=== PATIENT | male | born 1965 | race Caucasian/White ===

== ENCOUNTER 2017-07-20 14:29 | Day surgery (SDC) | payer OTHER ==
[~2017-07-20] VITALS: Ht 172.7 cm; Wt 88.4 kg
--- NOTE | ~2017-07-20 | DS ---
PATIENT'S NAME: JONO BLANCO [facility] AGE: 52 Y [address] ROOM: [id number] [place], [place] [address] [place] [facility] [place]: 07/20/2017 Discharge Summary DISCHARGE DATE: 07/21/2017 FAMILY PHYSICIAN: , AUGUSTUS ATTENDING PHYSICIAN: Lance Mata FINAL DIAGNOSES: 1. Left hand power-saw injury. 2. Essential hypertension. 3. History of asthma. CONSULTANTS ON THE CASE: Dr. Mata. PROCEDURES: Repair of extensor tendons and debridement of the left 1st metatarsal metacarpal by Dr. Mata. HOSPITAL COURSE: Briefly, the patient was admitted through the emergency room with traumatic injury. He was taken immediately to the operating room by Dr. Mata for the above-mentioned procedure. The patient tolerated the procedure well. He recovered without complications. He did receive perioperative antibiotics with ceftriaxone. The patient did receive oral Cipro postoperatively. The patient was found to have elevated blood pressures and Norvasc was started; however, the patient refused to take it. Following day, the patient's pain was well-controlled, he had complete sensation, and it was felt that the patient could safely be discharged and restrictions as per Dr. Mata's orders and followup following day at his clinic. The patient was counseled for greater than 25 minutes on implications of uncontrolled blood pressure by Dr. Houston and myself. However, the patient continued to refuse medication. The patient was discharged in stable condition. DISCHARGE INSTRUCTIONS: The patient is discharged home, activities, no use of the left thumb and no work with the left thumb. Diet is to resume previous. Bandages are to be kept clean and dry. Follow up with Dr. Mata on , 07/22/2017, at 7:30 a.m. DISCHARGE MEDICATIONS: 1. Ciprofloxacin 500 mg twice daily for 2 days. 2. Oxycodone 5/325 1 to 2 tabs every 4 hours as needed for pain. 3. Norvasc 5 mg orally everyday. I do appreciate participating in this patient's care and thank you very much for the ability to serve him while hospitalized at [facility]. PATIENT'S NAME: JONO BLANCO [facility] AGE: 52 Y [address] ROOM: [id number] [place] [id number] [place] [facility] [place]: 07/20/2017 Discharge Summary DISCHARGE DATE: 07/21/2017 FAMILY PHYSICIAN: PHYSICIAN, NO ATTENDING PHYSICIAN: Lance Mata PA FOR MARILIA HOUSTON MD JAVED/modl /[id number] d: 07/22/17 0553 t: 07/26/17 1829, DISCHARGE SUMMARY
--- NOTE | ~2017-07-20 | OR ---
PATIENT'S NAME: JAYESH LOPEZ [facility] AGE: 52 Y [address] ROOM: [place] [address] LOCATION: [facility] [place] ADMIT DATE: 07/20/2017 OR/Procedure Report DISCHARGE DATE: 07/21/2017 FAMILY PHYSICIAN: PHYSICIAN, NO ATTENDING PHYSICIAN: Lance Mata SURGEON: Lance Mata DO GENERAL UTILITY WORKER: Staff. DATE OF PROCEDURE: 07/20/2017 PREOPERATIVE DIAGNOSIS: Left thumb power saw laceration with extensor tendon and dorsal sensory nerve lacerations. POSTOPERATIVE DIAGNOSIS: Left thumb power saw laceration with extensor tendon and dorsal sensory nerve lacerations with a unicortical defect in the first dorsal metacarpal with no obvious major nerve lacerations. PROCEDURES: 1. Left thumb debridement to bone. 2. Left thumb repair, extensor pollicis longus tendon. 3. Left thumb repair, extensor pollicis brevis tendon. ANESTHESIA: IV regional with sedation. ESTIMATED BLOOD LOSS: Less than 10 mL. TOURNIQUET TIME: Less than 90 minutes at 250 mmHg. COMPLICATION: None. DISPOSITION: Stable to recovery room. JUSTIFICATION FOR PROCEDURE: Jayesh Lopez is a 52-year-old man with a history of an accidental self-inflicted laceration to the dorsal aspect of his left thumb just proximal to the MP joint. He had extensor tendon deficit to the thumb and diminished sensation dorsally. He was counseled as to treatment options, risks versus benefits, and necessary afterward care. He gave informed consent to proceed with a left thumb debridement, repair of tendon, possible repair of nerve, artery, and any indicated procedures. PROCEDURE IN DETAIL: The patient was properly identified, both verbally and by name tag. He was taken to the operating suite, placed on the operating table in the supine position. The anesthesiologist administered an IV regional anesthetic in the left upper extremity and IV sedation. Once adequate anesthesia was obtained, the left upper extremity was prepped PATIENT'S NAME: JAYESH LOPEZ [facility] AGE: 52 Y [address] ROOM: [place] [address] LOCATION: [facility] [place] ADMIT DATE: 07/20/2017 OR/Procedure Report DISCHARGE DATE: 07/21/2017 FAMILY PHYSICIAN: PHYSICIAN, NO ATTENDING PHYSICIAN: Lance Mata and draped in the usual sterile fashion. The extremity was exsanguinated with an Esmarch bandage and a tourniquet inflated to level of the arm to 250 mmHg. A #15 blade knife was used to make an oblique incision extending from the proximal and distal aspects of his roughly oblique laceration to gain access to more normal tissues and to gain access to the severed tendon ends. It was readily apparent that the power tool had cut completely through both the extensor pollicis longus and extensor pollicis brevis just proximal to the extensor cosme at the dorsal MCP joint and it scored the bone dorsally at the neck level on the first metacarpal. The wound was copiously irrigated with saline. It was debrided sharply from superficial to deep under loupe magnification, taking care to remove only devitalized and contaminated tissues. The dorsal sensory nerves to both sides of the thumb were identified and neither of these showed any significant injury. Some very tiny branches off the more ulnar of the 2 dorsal sensory nerve branches may have that had some injuries through the zone of injury, but the tissue here was heavily contaminated and it was felt that these tiny branches were most likely not amenable to repair. The main branches were intact. The wound was copiously irrigated with saline. The wound was meticulously debrided from superficial to deep and from proximal to distal. All contaminated and devitalized tissues were removed while protecting the remaining neurovascular and tendinous structures. The extensor tendon had retracted to just distal to the level of the wrist extensor crease dorsally and so the incision had to be extended proximally about that far, cutting only the skin with a 15 blade knife and then carrying out blunt dissection under loupe magnification through the superficial to the deep fascia. Once again, dorsal sensory branches of the radial nerve were identified and carefully protected throughout the procedure. The extensor pollicis brevis tendon was mobilized back to its anatomic insertion level and was freshened up sharply. It was then repaired with 2-0 FiberWire suture in an interrupted modified cruciate stitch pattern using a multi-stitch multi-knot technique. The extensor pollicis longus tendon was also mobilized and freed up from proximal to distal, passed through its normal fibroosseous tunnel and passed out till the level of the extensor cosme where it had been transected. It too was freshened up sharply and then repaired with 2-0 FiberWire suture in an interrupted modified cruciate stitch fashion using a multistrand multi-knot technique. The wound was copiously irrigated with saline. The thumb was then placed through a range of motion. Normal passive range of motion was achieved and good tenodesis function was achieved with passive motion through the wrist. The integrity of the tendon repairs was rechecked and showed no evidence of loss of knot integrity or approximation at the tendon surfaces. The wound was copiously irrigated with saline. It was carefully explored and there were no further areas of contamination or foreign body retention. The unicortical defect was debrided prior to the tendon repairs and it too showed no evidence of retained foreign body or contamination. The surgical incisions were closed with 5-0 nylon suture in an interrupted mattress stitch fashion to the skin. The traumatic PATIENT'S NAME: JAYESH LOPEZ [facility] AGE: 52 Y [address] ROOM: [place] [address] LOCATION: [facility] [place] ADMIT DATE: 07/20/2017 OR/Procedure Report DISCHARGE DATE: 07/21/2017 FAMILY PHYSICIAN: PHYSICIAN, NO ATTENDING PHYSICIAN: Lance Mata wound was loosely approximated with 5-0 nylon suture in an interrupted mattress stitch fashion taking care to leave ample open area to allow for drainage. The wound was copiously irrigated with saline prior to final skin closure and then covered with a sterile bulky bundle dressing. A splint was applied to protect the extensor repairs. The patient was aroused from IV sedation, taken to the recovery room in good condition. Immediate postoperative examination in the recovery room showed good capillary refill distally in all 5 digits. Light touch sensation and motor function distally were grossly intact in the radial, ulnar, and median nerve distributions. DO YAN GILES/olivial /[id number] d: 07/29/17 0230 t: 08/03/17 1805, OPERATIVE SUMMARY
--- NOTE | ~2017-07-20 | ER ---
PATIENT'S NAME: JONO LOPEZ [facility] AGE: 52 Y [address] ROOM: [place] [address] LOCATION: [facility] [place] ADMIT DATE: 07/20/2017 ER/Outpatient Report DISCHARGE DATE: 07/21/2017 FAMILY PHYSICIAN: PHYSICIAN, NO ATTENDING PHYSICIAN: Lance Mtaa CHIEF COMPLAINT: Left thumb injury. HISTORY OF PRESENT ILLNESS: Mr. Lopez was using a cut off wheel on [employer] just prior to arrival. When it slipped and struck his back of his left thumb around 2 p.m. He placed a bandage to the area after removing his cotton glove and decided to come in. His tetanus was updated two days ago. He denies any significant medical issues. No known allergies. Does not take any medications. Drinks socially. He is otherwise has no complaints other than he cannot lift his left thumb. He is without other complaints at this time. PAST MEDICAL HISTORY: Documented on the record and reviewed by me. SOCIAL HISTORY: Documented on the record and reviewed by me. MEDICATIONS: Documented on the record and reviewed by me. ALLERGIES: DOCUMENTED ON THE RECORD AND REVIEWED BY ME. REVIEW OF SYSTEMS: All systems reviewed and negative except as noted in the HPI. PHYSICAL EXAMINATION: VITAL SIGNS: Blood pressure 161/97, pulse is 75, respiratory rate is 20, temperature 97.4, SpO2 is 95% on room air. Pain is rated 2/10. GENERAL: Age-appropriate male, sitting upright on exam table. No apparent pain or distress. NEUROLOGIC: Awake and alert. No obvious abnormalities. No sensory deficits in the left thumb. The patient is unable to extend. Please see below for further details of musculoskeletal exam. HEENT: Normocephalic, atraumatic. Otherwise, unremarkable. CHEST/HEART: Regular rate and rhythm. LUNGS: Grossly clear. Even and unlabored respirations otherwise. ABDOMEN: Benign. PATIENT'S NAME: JONO LOPEZ [facility] AGE: 52 Y [address] ROOM: [place] [address] LOCATION: [facility] [place] ADMIT DATE: 07/20/2017 ER/Outpatient Report DISCHARGE DATE: 07/21/2017 FAMILY PHYSICIAN: PHYSICIAN, NO ATTENDING PHYSICIAN: Lance Mata BACK: Normal to inspection. EXTREMITIES: Unremarkable except for the left thumb. Just proximal to the base of the left thumb, there is a 2.5 cm of full-thickness laceration with visible tendon material in it. No obvious other abnormalities. The patient is unable to activate any extension of the thumb or the interphalangeal joint. He endorses normal sensation to light touch throughout the thumb except slightly diminished on the proximal phalanx, just distal to the injury. He denies any other symptoms at this time. SKIN: Otherwise clean, dry, and intact. IMPRESSION: Left thumb laceration with extensor tendon involvement and possible open joint. EMERGENCY DEPARTMENT COURSE: The patient was seen and evaluated at bedside. IV was established. He was given 2 g of Ancef. Tetanus is up to date. He will receive evaluation from Dr. Mata, hand surgeon, for this wound. I did discuss the case with Dr. Mata, and as I cannot completely eliminate any possibility of open joint and I feel a possible bony defect that would be consistent with mechanism of injury, despite not being able to see any abnormalities on x-ray, the patient will be taken to the operating room by Dr. Mata for surgical exploration and possible repair. MD KAYLA JOSEPH/david /[id number] d: 07/21/17 1443 t: 07/26/17 0640, OUTPATIENT REPORT
--- NOTE | ~2017-07-20 | CON ---
PATIENT'S NAME: JAYESH LOPEZ [facility] AGE: 52 Y [address] ROOM: [place] [address] [place] [facility] [place] ADMIT DATE: 07/20/2017 Consultation DISCHARGE DATE: 07/21/2017 FAMILY PHYSICIAN: PHYSICIAN, AUGUSTUS ATTENDING PHYSICIAN: Lance Mata DATE OF CONSULTATION: 07/20/2017 REFERRING PHYSICIAN: Michael Mcbride MD ADMISSION INFORMATION: Jayesh Lopez is a 52-year-old man who is a right-handed individual, status post an accidental self-inflicted injury to his left thumb with a power cutting tool. The patient had pain and inability to extend the left thumb after the injury. PAST MEDICAL HISTORY: Negative. PAST SURGICAL HISTORY: Significant for hernia operation. SOCIAL HISTORY: Significant for occasional EtOH use. Negative for tobacco. CURRENT MEDICATIONS: None. FAMILY HISTORY: Noncontributory. REVIEW OF SYSTEMS: A 10-system review showed no other complaints on his review of systems. PHYSICAL EXAMINATION: EXTREMITIES: The patient's left thumb showed an oblique laceration over the dorsal aspect in the vicinity of the MP joint. There was visible extensor tendon laceration and a possible unicortical defect in the bone at the level of the laceration. The patient had diminished sensation distal to the thumb along the dorsal aspect of the thumb. His flexion was intact. His other digits showed no injury. X-rays of the thumb in the AP, lateral, and oblique projection revealed no obvious fractures. ASSESSMENT: Laceration to the left hand with extensor tendon deficit at the left thumb. PATIENT'S NAME: JAYESH LOPEZ [facility] AGE: 52 Y [address] ROOM: [place] [address] [place] [facility] [place] ADMIT DATE: 07/20/2017 Consultation DISCHARGE DATE: 07/21/2017 FAMILY PHYSICIAN: PHYSICIAN, NO ATTENDING PHYSICIAN: Lance Mata PLAN: Treatment options, risks versus benefits, and necessary afterward care were discussed with the patient. Perioperative antibiotics and wound care were administered in the ER. His tetanus status was addressed and he was counseled as to treatment options. We gave him informed consent to proceed with a left thumb extensor tendon repair, debridement, and any indicated procedures. He was scheduled for the surgery later the same night. DO YAN GILES/david /[id number] d: 07/29/17 0117 t: 08/03/17 1808, CONSULTATION REPORT
--- NOTE | ~2017-07-20 | HP ---
PATIENT'S NAME: JONO BLANCO [facility] AGE: 52 Y [address] ROOM: [place] [address] LOCATION: [facility] ADMIT DATE: 07/20/2017 History & Physical DISCHARGE DATE: FAMILY PHYSICIAN: PHYSICIAN, NO ATTENDING PHYSICIAN: Gil Baron DATE OF SERVICE: CHIEF COMPLAINT: Left thumb traumatic laceration. HISTORY OF PRESENT ILLNESS: The patient is a pleasant 52-year-old male, who was working today at [employer]. 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 He was wearing cotton gloves at that time. He was immediately sent to the emergency room for further evaluation. Upon evaluation here in the emergency room, there was some concern for tendon disruption and/or further occult injury. X-ray was performed and was negative for acute fracture. We were asked to admit the patient for possible orthopedic surgical repair of the above-mentioned thumb. Dr. Mata has been consulted and evaluated the patient. He felt that the patient would require I and D and further exploration. Currently, the patient denies any pain or paresthesias. He denies any chest pain, pressure, palpitations, orthopnea, orthostasis, or PND. He has not had any cough, colds, or recent illnesses. The patient had surgical hernia repair as well as cyst removed from his back with uncomplicated postoperative course. No history of DVT or PE. ALLERGIES: NO KNOWN MEDICAL ALLERGIES. MEDICATIONS: None. PAST MEDICAL HISTORY: Include: 1. Elevated blood pressure. 2. Status post inguinal hernia repair. 3. Status post sebaceous cyst removed from his back. 4. Childhood asthma. SOCIAL HISTORY: The patient works at [employer]. He enjoys alcohol on a social level, has not experienced any withdrawal symptoms. He denies any tobacco use or drug PATIENT'S NAME: BELLA [facility] AGE: 52 Y [address] ROOM: [place] [address] LOCATION: [facility] ADMIT DATE: 07/20/2017 History & Physical DISCHARGE DATE: FAMILY PHYSICIAN: PHYSICIAN, NO ATTENDING PHYSICIAN: Gil Baron use. FAMILY HISTORY: The patient states his mom at the age of 62, related to Alzheimer's disease. His father's past medical history is unknown. He has one sister, who has complicated medical history and his disabled. REVIEW OF SYSTEMS: Full 13-point review of systems was asked and is otherwise negative, apart from that mentioned in the HPI. PHYSICAL EXAMINATION: VITAL SIGNS. The patient is 95% on room air, temperature is 97.4, pulse is 75, and blood pressure 161/97. GENERAL: The patient is alert, oriented, in no distress. HEENT: Head normocephalic and atraumatic. Eyes: PERRLA. EOMI. Ears: TMs are intact, nonerythematous. Canals are clear. Nose is patent. Mucosa is pink and moist. Throat: Posterior pharynx is non-erythematous. No tonsillar hypertrophy or exudates. NECK: Supple. Full range of motion. No adenopathy or thyromegaly. LUNGS: Clear to auscultation and percussion bilateral. Breath sounds are even and regular throughout. HEART: Regular rate and rhythm without murmur. No carotid bruits or JVD. ABDOMEN: Soft, nondistended. Positive bowel sounds auscultated. No masses or organomegaly palpated. EXTREMITIES: Free of edema, cyanosis or clubbing. Left thumb does show extensive bandage in place. I did not remove that and told that there is a small laceration that been further explored via the ER physician. No drainage present on the bandage wrap. The patient does have range of motion in the thumb and sensation is intact. He has less than 2 second capillary refill noted in the thumb. MUSCULOSKELETAL: Appropriate range of motion in bilateral upper and lower extremities without significant crepitus. No joint effusions noted. NEUROLOGIC: Cranial nerves 2 through 12 grossly intact. No focal or sensory deficits noted. SKIN: Free of rash or lesion. DIAGNOSTIC DATA: EKG shows sinus rhythm with a ventricular rate of 68 beats per minute, QRS at 94 millisecond and QTc at 397. CBC shows a white blood cell count of 4.4, hemoglobin 15, hematocrit 42.6, platelets 239. Differential was unremarkable. Rest of the labs are pending at the time of dictation. IMPRESSION AND PLAN: 1. Traumatic left thumb laceration with question of tendon disruption. PATIENT'S NAME: LBANCOJONO [facility] AGE: 52 Y [address] ROOM: [place], [place] [address] LOCATION: [facility] ADMIT DATE: 07/20/2017 History & Physical DISCHARGE DATE: FAMILY PHYSICIAN: PHYSICIAN, NO ATTENDING PHYSICIAN: Gil Baron has been consulted and will take the patient to OR [facility], pending final clearance. 2. History of elevated blood pressures. We will monitor the patient closely, IV Lopressor is ordered to control systolic pressures greater than 170. 3. History of asthma. The patient's chest x-ray is clear. We will continue to monitor his pulmonary status closely. DVT prophylaxis with SCDs at this point. Further orders are pending attending physicians final review. No further workup is indicated and final clearance will be given by Dr. Pilar Carter. CODE STATUS: Full code. We do appreciate participating in this patient's care and thank you very much for the ability to serve him while hospitalized at [facility]. XOCHITL HARDY FOR PILAR CARTER MD JAVED/modl /[id number] D: 942 T: 556 HISTORY & PHYSICAL
--- NOTE | ~2017-07-20 | ER ---
PATIENT'S NAME: JONO BLANCO [facility] AGE: 52 Y [address] ROOM: [address] [address] LOCATION: [facility] [place] ADMIT DATE: 07/20/2017 ER/Outpatient Report DISCHARGE DATE: 07/21/2017 FAMILY PHYSICIAN: PHYSICIAN, NO ATTENDING PHYSICIAN: Lance Mata ADDENDUM: LABORATORY AND X-RAY DATA: EKG reveals sinus rhythm, rate of 68, with no obvious abnormalities. Normal EKG. CMS with no appreciable abnormalities. CBC and coags are within normal limits. EMERGENCY DEPARTMENT COURSE: For surgical clearance, the Internal Medicine Service was consulted and was seen by XOCHITL Rausch, for clearance prior to surgical exploration. DISPOSITION: Operating room with admission versus discharge pending surgical evaluation. MD KAYLA JOSEPH/david /[id number] d: 07/21/17 1440 t: 07/26/17 0643, OUTPATIENT REPORT
[2017-07-20 16:58] LABS: BASOPHIL # 0.1 K/uL (0.0-0.2); BASOPHIL % 1.4 %; EOSINOPHIL # 0.1 K/uL (0.0-0.5); EOSINOPHIL % 2.5 %; HEMATOCRIT 42.6 % (37.0-53.0); IMMATURE GRANULOCYTE % 0.5 %; LYMPHOCYTE % 23.4 %; MCH 31.5 pg (27.0-34.0); MCHC 35.2 gm/dL (32.0-36.5); MCV 89.5 fl (83.0-98.0); MONOCYTE # 0.4 K/uL (0.0-1.0); MONOCYTE % 9.4 %; MPV 8.6 fl (9.4-12.4); NEUTROPHIL # (ANC) 2.7 K/uL (1.4-9.0); NEUTROPHIL % 62.8 %; NRBC % 0 /100WBC (0-0.00); PLATELET COUNT 239 K/uL (150-450); RBC 4.76 M/uL (4.00-6.00); WBC 4.4 K/uL (4.0-11.0)
[2017-07-20 17:07] LABS: INR - (THERAPEUTIC) 0.95 (0.92-1.07); PTT 27 SECONDS (25-32)
[2017-07-20 17:15] LABS: ALBUMIN 4.1 gm/dL (3.5-5.0); ANION GAP 10.6 (10.0-19.0); CALCIUM 8.7 mg/dL (8.5-10.5); CREATININE 1.1 mg/dL (0.6-1.3); POTASSIUM 4.6 mMol/L (3.7-5.1); TOTAL BILIRUBIN 0.3 mg/dL (0.0-1.5)
--- NOTE | 2017-07-21 00:51 | NUR ---
Admission: PT admitted after I/D and tendon repain on L thumb. pt denies pain when up to floor. on RA. No home meds. NKA. IV in right wrist SL. HTN at times. MD notified. Hospitalist consulted for medical management and pain control. will go home aimee. D/C instructions on chart already. pt did not have a ride home tonight. PO Cipro [id number]. Good CMS in left thumb. resting comfortable in bed
--- NOTE | 2017-07-21 05:50 | NUR ---
Significant Event: Pt alert and oriented x3. cooperative with cares. idependent in room. denies any pain or neausea. wiggles all fingers on left hand. good cap refill on left thumb. slept most of the night. regular diet. plan is to go home today. pt states he plans to drive himself. educated patient on how he should find a ride home. HTN. Dr. Mcbride ordered pt Norva [facility], he stated he would refuse. Follow up: home today
[2017-07-21] MEDS ORDERED: CIPRO500 MG PO (12:49)
[2017-07-21] MEDS ORDERED: PERCOCET 5-3251 EACH PO (12:50)
[2017-07-21] MEDS ORDERED: NORVASC5 MG PO (12:51)
--- NOTE | 2017-07-21 12:57 | NUR ---
DISCHARGE: D: ORDERS RECEIVED FOR THE PATIENT TO BE DISCHARGED TO HOME TODAY I: DISMISSAL INSTRUCTIONS WERE PREPARED AND REVIEWED WITH THE PATIENT VIRTUALLY. THE FOLLOWING INFORMATION WAS DISCUSSED INCLUDING [employer]RAMES TEACHING SHEETS PROVIDED: TREATING HAND FRACTURES, AFTER HAND SURGERY, NORVASC, CIPRO, PERCOCET AND PREVENTING DVT. REVIEWED NEW PRESCRIPTIONS AND THAT HE WILL NEED TO TAKE THEM TO THE PHARMACY OF HIS CHOICE TO GET FILLED. R: THE PATIENT VERBALIZED UNDERSTANDING OF THE DISMISSAL EDUCATION AT THE TIME OF TEACHING WITH NO FURTHER QUESTIONS. P: THE ABOVE INFORMATION WAS SHARED WITH THE PRIMARY NURSE AND THE CHARGE NURSE THAT THE PATIENT'S DISMISSAL EDUCATION WAS COMPLETED. THE PATIENT IS READY FOR DISCHARGE TO THE FRONT DOOR BY NURSING STAFF.
--- NOTE | 2017-07-21 14:17 | NUR ---
Significant Event: Pt up ad brady. Denies pain. Good csm's to left hand/dressing d/i. Tolerating regular diet. Pt has mild hypertension but refuses to take his ordered dose of MD Kayleen aware. Dc to home at 1327. Has been educated on risk of high blood pressure but still refuses to take his meds as prescribed. Follow up:
== END 2017-07-21 13:27 | disposition disaster alternative care site (69) ==
LOC: GACC 14:29 → GSDC 18:19 → GMSU 18:19 → GSDC 07-21 13:27
PROVIDERS: Emergency Medicine
PROC: 0LQ80ZZ Repair Left Hand Tendon, Open Approach (ICD-10-PCS; principal; 2017-07-20)
DX: S66.222A Laceration of extensor muscle, fascia and tendon of left thumb at wrist and hand level, initial encounter (principal); S61.012A Laceration without foreign body of left thumb without damage to nail, initial encounter; W26.8XXA Contact with other sharp object(s), not elsewhere classified, initial encounter; Z98.890 Other specified postprocedural states; I10 Essential (primary) hypertension; Z79.891 Long term (current) use of opiate analgesic; Z79.899 Other long term (current) drug therapy; Z87.09 Personal history of other diseases of the respiratory system
CPT/HCPCS: J0690; J0696; J7030; J7040